=== PATIENT | male | born 1970 | race Caucasian/White ===

== ENCOUNTER 2024-05-23 11:01 | Emergency (ER) | payer OTHER, SELFPAY ==
[2024-05-23 11:03] VITALS: BP 140/90
[2024-05-23 11:10] VITALS: BMI 34.7
--- NOTE | 2024-05-23 12:59 | ED.GENMED ---
History of Present Illness
General
Chief Complaint: Musculo-Skeletal Complaint
Source: patient
Exam Limitations: none
Time Seen by Provider: 05/23/24 11:11
Nursing documentation reviewed up to this point in time: agreed with
History of Present Illness
History of Present Illness:
Patient is a 54-year-old male who complains of right foot pain and swelling. He noticed some discomfort yesterday he does stretching in the morning and feels that he may have bent his toes more than normal but he did not feel pain at that time he
feels that this may have caused the symptoms. He complains of swelling to his right foot and
Does have small mount of redness. He denies any fever or chills.
Review of Systems
Review of Systems
Allergies reviewed?: Yes
All Other Systems: ROS reviewed and negative except as documented in HPI and ROS
Constitutional: Reports no symptoms; Denies fever, fatigue or chills
Musculoskeletal: Reports other (right foot pain/swelling/mild redness )
Skin: Reports no symptoms
Neurological: Reports no symptoms
Psychiatric: Reports no symptoms
Phy Exam
General Physical Exam
General Presentation: no apparent distress
General age: appears stated age
General Skin: warm and dry
General Habitus: normal
General Mental: alert
General Hydration: appears well hydrated
Neurological Exam
Neurological Exam: alert and oriented x3
Musculoskeletal Exam
Musculoskeletal Exam: other (right foot with strong pulses mild dorsal swelling mild erythema around base of second/third MTP joint mildly tender )
Skin Exam
Skin Exam: normal color and warm/dry
Psychiatric Exam
Psychiatric Exam: normal mood/affect
Course
Orders/Labs/Results
Orders:
Orders
05/23/24 11:32
CR Foot - Right Min 3 Views Urgent
Comment:
Reason For Exam: pain /dorsal swelling
Vital Signs
Initial and Last Documented VS:
Initial Vital Signs
Temp Pulse Resp BP Pulse Ox
98.2 F 68 16 140/90 98
05/23/24 11:03 05/23/24 11:03 05/23/24 11:03 05/23/24 11:03 05/23/24 11:03
Last Documented Vital Signs
Temp Pulse Resp BP Pulse Ox
98.2 F 68 16 140/90 98
05/23/24 11:03 05/23/24 11:03 05/23/24 11:03 05/23/24 11:03 05/23/24 11:03
MDM/Problems Addressed
Differential Diagnosis Includes:
Not limited to foot sprain, mild cellulitis
MDM/Problems Addressed:
No obvious fracture questionable injury however there is a small amount of redness. This could be sprain strain versus start of mild cellulitis. Patient had cellulitis in the past on his elbow and did not have an active injury. Will DC on Keflex.
We did discuss possible sprain strain versus mild cellulitis. Discussed to return if any worsening of symptoms and close outpatient follow-up will have patient continue however to take ibuprofen and ice elevate
*Pulse Oximetry
Patient hypoxic: no
*Critical Care Note
Total Time (30-74mins, 75-104mins- exclusive of procedures): Not Applicable
ED Attending Note
-
Portions of this chart may have been created with voice recognition software.� Occasional wrong word or��sound alike� substitutions may have occurred due to the inherent limitations of voice recognition software.
Discharge Plan
Departure
Patient Disposition: Home (Routine Discharge)
Date of Disposition: 05/23/24
Time of Disposition: 13:18
Patient with high blood pressure during this ER visit?: Yes
Covid-19: Not Applicable
Discharge Problem:
Acute foot pain
Instructions: Muscle and Bone Pain (DC)
Prescriptions:
New
cephalexin 500 mg capsule
500 mg PO Q6H Qty: 28 0RF
Referrals:
Capo Bess, DO [Family Provider] -
Activity Restrictions/Additional Instructions:
As discussed you were given a script for Keflex to take for possible cellulitis. Take as directed. As discussed keep elevated and ice . Ibuprofen as directed every 8 hrs with food. follow up with your family doctor in the next 1 -2 days for
reevaluation.
return if any worsening of symptoms
Interventions
Interventions:
*Risk Screen - Suicide Last Done: 05/23/24 11:12
*Neglect/Abuse Screening Last Done: 05/23/24 11:12
ED-Musculoskeletal Assessment Last Done: 05/23/24 11:11
Discharge Date and Time
Print Language: GAMBIAN
[2024-05-23] MEDS: KEFLEX 500 MG PO (13:33)
== END 2024-05-23 13:52 | disposition home or self-care (01) ==
LOC: EMR 11:01
PROVIDERS: EMERGENCY PHYSICIAN Student in an Organized Health Care Education/Training Program; FAMILY PHYSICIAN Family Medicine
DX: M79.671 Pain in right foot (principal); R22.41 Localized swelling, mass and lump, right lower limb
CPT/HCPCS: 99283; 73630